=== PATIENT | male | born 1965 | race Caucasian/White ===

== ENCOUNTER 2021-09-08 09:14 | Emergency (ER) | payer MEDICARE, MEDICAID, SELFPAY ==
[2021-09-08 10:20] VITALS: BP 151/96; PULSE 110; RESP 18; TEMP 36.2; O2SAT 96; BMI 39.5
[2021-09-08 11:18] LABS: COVID-19 Test Positive (Negative)
[2021-09-08 11:27] LABS: Amphetamine Screen Urine Not Detected (Not Detect); Barbiturates, Urine Not Detected (Not Detect); Benzodiazepines Screen Urine Not Detected (Not Detect); Cannabinoid Screen Urine Not Detected (Not Detect); Cocaine Screen Urine Not Detected (Not Detect); Fentanyl, urine Not Detected (Not Detect); Opiate Screen Urine Not Detected (Not Detect); Phencyclidine Screen Urine Not Detected (Not Detect)
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
[2021-09-08] MEDS: Loperamide HCl 2 MG CAPSULE 4 MG PO (14:24)
[2021-09-08] MEDS: clonazePAM 1 MG TABLET PO ×2 (14:37→21:24)
[2021-09-08 14:51] LABS: MANUAL DIFF FLAG NO
[2021-09-08 14:54] LABS: Basophils Percent Auto 0.6 % (0-2); Eosinophils Percent Auto 0.4 % (0-4); Hematocrit 48.6 % (42.0-52.0); Hemoglobin 16.6 g/dl (14.0-18.0); Imm Gran Abs Auto 0.02 X10*3/uL (0.00-0.03); Imm Gran Pct Auto 0.4 % (0.0-0.4); Lymphocytes Absolute Auto 1.6 X10*3/uL (1.2-4.9); Lymphocytes Percent Auto 32.1 % (20-40); Mean Corpuscular HGB Conc 34.2 g/dl (31.0-36.0); Mean Corpuscular Hemoglobin 31.6 pg (27.0-33.0); Mean Corpuscular Volume 92.6 fL (80.0-98.0); Monocytes Absolute Auto 0.5 X10*3/uL (0.1-1.2); Monocytes Percent Auto 8.9 % (2-11); Neutrophils Absolute Auto 2.9 x10*3/uL (2.0-8.3); Neutrophils Percent Auto 57.6 % (45-73); Platelet Count 346 X10*3/uL (160-400); Red Blood Count 5.25 X10*6/uL (4.60-5.80); Red Cell Distribution Width 12.7 % (11.0-16.0); White Blood Count 5.1 X10*3/uL (4.8-10.8)
[2021-09-08 15:09] LABS: Alanine Aminotransferase 41 U/L (0-40); Albumin Level 4.4 g/dL (3.5-5.0); Alkaline Phosphatase 98 U/L (39-117); Anion Gap 14 (12-20); Aspartate Amino Transferase 40 U/L (5-37); Bilirubin Total 1.2 mg/dL (0.0-1.0); Blood Urea Nitrogen 12 mg/dL (9-16); Calcium 9.5 mg/dL (8.4-10.2); Carbon Dioxide 25 mmol/L (22-29); Chloride 103 mmol/L (96-108); Creatinine Clr Calc Pharmacy 112.8; Estimated Glomerular Filt Rate > 60; Ethanol < 10 mg/dL; Glucose Random 149 mg/dL (60-115); Magnesium 1.8 mg/dL (1.6-2.6); Sodium 138 mmol/L (135-145); Total Protein 7.4 g/dL (6.5-8.0)
--- NOTE | 2021-09-08 15:31 | PHA.MEDREC ---
Pharmacy Consult ? Medication Reconciliation Pharmacy has completed the medication reconciliation. Patient has not filled with [facility] since 2020, Claim history shows recent fills but they have not been picked up therefore have not been confirmed to have been taken recently. PDMP also shows no recent fills since 2020. PA was notified that patient has not picked up since then.
[2021-09-08 16:53] VITALS: BP 137/97; PULSE 104; TEMP 36.6; O2SAT 99
[2021-09-08] MEDS: Omeprazole 40 MG CAPSULE.DR PO (17:25)
[2021-09-08] MEDS: Methylphenidate HCl 10 MG TABLET 20 MG PO (17:26)
[2021-09-08] MEDS: LORazepam 1 MG TABLET 2 MG PO (18:47)
[2021-09-08] MEDS: NaPROXEN 500 MG TABLET PO (21:24)
[2021-09-08] MEDS: traMADoL HCL 50 MG TABLET PO (21:24)
[2021-09-08] MEDS: Amitriptyline HCl 10 MG TABLET PO (21:25)
[2021-09-08] MEDS: Atorvastatin Calcium 40 MG TABLET PO (21:25)
[2021-09-09] MEDS: Omeprazole 40 MG CAPSULE.DR PO ×2 (05:50→16:24)
--- NOTE | 2021-09-09 06:11 | PC.NURSE ---
Patient slept through the night, no distress observed/reported, medication compliant, administered Tramadol 50 mg and Klonopin 1 mg administered with HS medication at 2124, asymptomatic of withdrawal, behavior appropriate, follow covid quarantine protocol well, dispsotion per N is section 12 inpatient bed search, will continue to monitor.
[2021-09-09 06:24] VITALS: BP 131/86; PULSE 87; RESP 17; TEMP 36.9; O2SAT 99
[2021-09-09 08:08] VITALS: RESP 16
[2021-09-09] MEDS: Methylphenidate HCl 10 MG TABLET 20 MG PO ×3 (08:59→16:24)
[2021-09-09] MEDS: clonazePAM 1 MG TABLET PO ×2 (09:01→16:17)
[2021-09-09] MEDS: traMADoL HCL 50 MG TABLET PO ×2 (13:20→21:36)
--- NOTE | 2021-09-09 15:18 | PC.NURSE ---
Pt provided with sensory tools, word finds, and coloring pages, pt reports reading and journaling cause him anxiety. Pt presents pleasant and anxious however is receptive to activities provided. Pt is currently COVID +.
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
[2021-09-09 19:43] VITALS: BP 123/84; PULSE 118; RESP 17; TEMP 36.8; O2SAT 98
[2021-09-09 20:24] LABS: COVID-19 Test Positive (Negative)
[2021-09-09] MEDS: OXcarbazepine 150 MG TABLET PO (21:25)
[2021-09-09] MEDS: Amitriptyline HCl 10 MG TABLET PO (21:25)
[2021-09-10] MEDS: clonazePAM 1 MG TABLET PO ×4 (00:19→20:53)
--- NOTE | 2021-09-10 06:03 | PC.NURSE ---
Patient slept through the night, no distress observed/reported, disposition per [facility] is section 12 inpatient bed search, medication compliant, daughter dropped off patient's eye drop/medication is old/no visible expiration date/medication was labeled and placed in the patient's locker, patient exhibits medication seeking behavior with PRN Tramadol and Klonopin order, patient uphold quarantine protocol well, will continue to monitor.
[2021-09-10] MEDS: Omeprazole 40 MG CAPSULE.DR PO (06:37)
[2021-09-10 06:43] VITALS: BP 110/87; PULSE 111; RESP 18; TEMP 36.3; O2SAT 95
[2021-09-10] MEDS: OXcarbazepine 150 MG TABLET PO ×2 (09:23→20:53)
[2021-09-10] MEDS: Methylphenidate HCl 10 MG TABLET 20 MG PO ×3 (09:24→17:47)
--- NOTE | 2021-09-10 10:26 | PC.NURSE ---
Addendum entered by Naomi Michelle 09/10/21 10:29: After lengthy conversations it has been determined that patient will take PRN Klonipin and Ultram at 6am, 1400, 2200. This most closely matches his use at home. In order for pt to take meds at proper time for sleep he prefers we wake him at 6am for first dose of the day. Pt is calm, aware of plan for psych admission. Denies SI/HI at this time. no tremor/ETOH withdrawal sx. Original Note: Pt has been resting in room mainly. Denies SOB, Cough, Chills. States he may have had covid sx a few days ago but is asymptomatic now. Pt feels strongly that PRN meds should be taken at
[2021-09-10] MEDS: traMADoL HCL 50 MG TABLET PO ×2 (14:11→22:17)
--- NOTE | 2021-09-10 15:25 | PC.NURSE ---
Brief check in with pt completed this date. Pt reports having a restless night however is feeling better. Consult with pts nurse as pt expresses an interest in music. POD headphone to be offered later this day as pt is watching a movie at the moment.
--- NOTE | 2021-09-10 16:07 | PC.NURSE ---
BHN with patient
[2021-09-10] MEDS: Amitriptyline HCl 10 MG TABLET PO (20:53)
[2021-09-10 21:03] LABS: COVID-19 Test Positive (Negative)
[2021-09-10 21:45] VITALS: BP 125/77; PULSE 99; RESP 20; TEMP 36.4; O2SAT 95
[2021-09-11 05:17] VITALS: BP 131/88; PULSE 107; RESP 18; TEMP 36.7; O2SAT 96
[2021-09-11] MEDS: Omeprazole 40 MG CAPSULE.DR PO ×2 (05:30→13:58)
--- NOTE | 2021-09-11 06:24 | PC.NURSE ---
Patient slept through the night, no distress observed/reported, medication compliant, Covid test redone result +, disposition per [facility] is section 12 inpatient bed search, Klonopin order changed from PRN to schedule, behavior non concerning, will continue to monitor.
--- NOTE | 2021-09-11 07:08 | PC.NURSE ---
patient appears to remain asleep at present respirations are even and unlabored. patient appears in no distress
[2021-09-11] MEDS: OXcarbazepine 150 MG TABLET PO ×2 (08:16→21:55)
[2021-09-11] MEDS: clonazePAM 1 MG TABLET PO ×3 (08:16→21:55)
[2021-09-11] MEDS: Methylphenidate HCl 10 MG TABLET 20 MG PO ×3 (08:17→17:32)
[2021-09-11] MEDS: traMADoL HCL 50 MG TABLET PO ×2 (08:31→15:18)
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
[2021-09-11 12:22] VITALS: RESP 16
[2021-09-11 14:00] VITALS: RESP 20
--- NOTE | 2021-09-11 14:00 | PC.NURSE ---
Pt continues to scream I'm dying and it's your fucking fault . airway remains patent. Skin p/w/d. RR tachy and unlabored. Screaming full sentences.
--- NOTE | 2021-09-11 15:09 | PC.NURSE ---
Report received from Miranda MCCANN. Pt awake, oriented, no complaints at this time, continues to be isolated to room due to Covid status. Calm and cooperative.
--- NOTE | 2021-09-11 16:44 | PC.NURSE ---
Per Tracy from CARE team, plan is for N to work with pt to form a plan for d/c, the hope is to obtain an urgent care appointment or get pt set up with PHP.
[2021-09-11 21:30] VITALS: BP 129/91; PULSE 91; RESP 20; TEMP 36.5; O2SAT 98
[2021-09-11] MEDS: Amitriptyline HCl 10 MG TABLET PO (21:55)
[2021-09-12 05:35] VITALS: BP 132/76; PULSE 74; RESP 14; TEMP 36.6; O2SAT 98
--- NOTE | 2021-09-12 06:28 | PC.NURSE ---
Patient slept through the night, no distress observed/reported, medication compliant, behavior non concerning, Covid +, disposition changed to [facility] per N, will continue to monitor.
[2021-09-12] MEDS: Omeprazole 40 MG CAPSULE.DR PO (06:36)
[2021-09-12] MEDS: traMADoL HCL 50 MG TABLET PO (07:32)
[2021-09-12] MEDS: OXcarbazepine 150 MG TABLET PO (07:42)
[2021-09-12] MEDS: clonazePAM 1 MG TABLET PO ×2 (07:45→11:47)
[2021-09-12] MEDS: Methylphenidate HCl 10 MG TABLET 20 MG PO (07:46)
[2021-09-12 08:46] VITALS: BP 137/85; PULSE 116; RESP 18; TEMP 37.1; O2SAT 97
--- NOTE | 2021-09-12 15:37 | PC.NURSE ---
spoke to pt regarding med rec from [facility], Simran JAVIER did write for the Ritalin and sent over electronically. I also was told from pharm that his amitripyline is too early to fill and can be done on October 17.
== END 2021-09-12 11:58 | disposition home or self-care (01) ==
PROVIDERS: Physician Assistant; Physician Assistant Medical; Registered Nurse; Emergency Provider Emergency Medicine
DX: F43.10 Post-traumatic stress disorder, unspecified (principal); U07.1 COVID-19; F41.0 Panic disorder [episodic paroxysmal anxiety]; F41.1 Generalized anxiety disorder; F33.1 Major depressive disorder, recurrent, moderate; R00.0 Tachycardia, unspecified; Z20.822 Contact with and (suspected) exposure to COVID-19; Z79.899 Other long term (current) drug therapy
CPT/HCPCS: 36415; 80053; 80307; 82077; 83735; 85025; 87635; 99285

== ENCOUNTER 2024-04-28 17:03 | Inpatient (IN) | payer OTHER, SELFPAY ==
--- NOTE | ~2024-04-28 | XR_ITS ---
CLINICAL HISTORY: pain, fall 3 view right shoulder Comparison: None Findings: Mild osteoarthritis of the right AC joint. Postprocedural changes from partial right glenohumeral arthroplasty. Lucencies of the proximal humerus appear projectional without definite hardware loosening. Soft tissue swelling with effusion present. Multiple small loose bodies noted. Sclerosis of the proximal humerus appears non aggressive. Atelectasis in the [id number]. IMPRESSION: 1. No hardware loosening of the right glenoid humeral partial arthroplasty. 2. Osteoarthritis of the right AC joint without dislocation. This document has been electronically signed by: Tai Chavez MD on 04/28/2024 19:51:45
[2024-04-28 17:17] VITALS: BP 130/84; BP 130/89; PULSE 108; PULSE 93; RESP 16; TEMP 36.6; O2SAT 98; O2SAT 99; BMI 27.1
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
[2024-04-28 17:57] LABS: MANUAL DIFF FLAG NO
[2024-04-28 18:01] LABS: Basophils Absolute Auto 0.1 X10*3/uL (0.0-0.2); Basophils Percent Auto 0.4 % (0-2); Eosinophils Percent Auto 0.1 % (0-4); Hematocrit 44.1 % (42.0-52.0); Hemoglobin 15.1 g/dl (14.0-18.0); Imm Gran Abs Auto 0.03 X10*3/uL (0.00-0.03); Imm Gran Pct Auto 0.3 % (0.0-0.4); Lymphocytes Absolute Auto 1.7 X10*3/uL (1.2-4.9); Lymphocytes Percent Auto 15.4 % (20-40); Mean Corpuscular HGB Conc 34.2 g/dl (31.0-36.0); Mean Corpuscular Hemoglobin 30.3 pg (27.0-33.0); Mean Corpuscular Volume 88.4 fL (80.0-98.0); Mean Platelet Volume 10.2 fL (9.4-12.4); Monocytes Absolute Auto 0.7 X10*3/uL (0.1-1.2); Monocytes Percent Auto 6.2 % (2-11); Neutrophils Absolute Auto 8.7 x10*3/uL (2.0-8.3); Neutrophils Percent Auto 77.6 % (45-73); Platelet Count 205 X10*3/uL (160-400); Red Blood Count 4.99 X10*6/uL (4.60-5.80); Red Cell Distribution Width 13.2 % (11.0-16.0); White Blood Count 11.1 X10*3/uL (4.8-10.8)
[2024-04-28 18:03] VITALS: RESP 18
--- NOTE | 2024-04-28 18:06 | PC.NURSE ---
Lorenzo is coming in today reporting that he no longer feels comfortable living at his retirement in [place]. He reports that he lives in a [place] however the individuals there trigger his PTSD. He reports that he walked from the [place] retirement in [place] to his daughters house in [place] because he does not want to live there anymore. Patient denies SI/HI/AH/VH Patient reports that he also had shoulder surgery back in 2023 and had complications that subsequently caused him to have to stay in the hospital for about 1 month after surgery. patient now has limited range of motion in his right shoulder as well as chronic pain. he reports that he slipped and fell on the ice today as well and landed on shoulder. DO aware
[2024-04-28 18:13] LABS: Alanine Aminotransferase 37 U/L (0-40); Albumin Level 4.8 g/dL (3.5-5.0); Alkaline Phosphatase 91 U/L (39-117); Anion Gap 15 (12-20); Aspartate Amino Transferase 38 U/L (5-37); Bilirubin Direct 0.2 mg/dL (0.0-0.5); Bilirubin Total 0.7 mg/dL (0.0-1.0); Blood Urea Nitrogen 12 mg/dL (9-16); Calcium 10.2 mg/dL (8.4-10.2); Carbon Dioxide 27 mmol/L (22-29); Chloride 103 mmol/L (96-108); Creatinine Clr Calc Pharmacy 74.2; Estimated Glomerular Filt Rate > 60; Ethanol < 10 mg/dL; Glucose Random 110 mg/dL (60-115); Magnesium 1.7 mg/dL (1.6-2.6); Potassium 3.7 mmol/L (3.3-5.1); Sodium 141 mmol/L (135-145); Total Protein 8.2 g/dL (6.5-8.0)
[2024-04-28] MEDS: LORazepam 1 MG TABLET 2 MG PO (22:07)
--- NOTE | 2024-04-28 22:33 | PC.NURSE ---
pt c/o difficulty voiding states hasn't voided since this am. MD notified and gave verbal order to bladder scan. Pt scanned for over 650. MD notified stated to insert harvey catheter this nurse attempted x 1 without success. No urine output when attempted. md notified.
[2024-04-29] VITALS (9 sets, daily range): BP systolic 88–132; BP diastolic 52–87; PULSE 75–114; RESP 16–20; TEMP 36.4–36.6; O2SAT 95–99
--- NOTE | 2024-04-29 00:03 | PC.NURSE ---
Patient reported he is allergic on high dose of Seroquel ( > 600 mg). provider notified
[2024-04-29] MEDS: QUEtiapine Fumarate 25 MG TABLET PO ×2 (00:04→08:28)
[2024-04-29] MEDS: Methylphenidate HCl 10 MG TABLET 20 MG PO ×4 (00:04→20:50)
[2024-04-29] MEDS: Baclofen 10 MG TABLET PO ×2 (00:04→08:26)
[2024-04-29] MEDS: OLANZapine 5 MG TABLET PO (00:04)
[2024-04-29 00:15] LABS: Appearance Urine Clear; Color Urine Yellow; Glucose Urine UA Negative (Negative); Leukocyte Esterase Urine Negative (Negative); Nitrite Urine Negative (Negative); PH 5.5 (5.0-9.0); Specific Gravity - Urine 1.015 (1.005-1.025); Urine Blood Negative (Negative); Urine Ketones 15 mg/dL (Negative); Urine Protein Negative (Neg-Trace)
[2024-04-29 00:18] LABS: Amphetamine Screen Urine Not Detected (Not Detect); Barbiturates, Urine Not Detected (Not Detect); Benzodiazepines Screen Urine POSITIVE (Not Detect); Buprenorphine Scr Not Detected (Not Detect); Cannabinoid Screen Urine POSITIVE (Not Detect); Cocaine Screen Urine Not Detected (Not Detect); Fentanyl, urine Not Detected (Not Detect); Methadone Screen, Urine Not Detected (Not Detect); Opiate Screen Urine Not Detected (Not Detect); Oxycodone Screen Urine Not Detected (Not Detect); Phencyclidine Screen Urine Not Detected (Not Detect)
[2024-04-29] MEDS: diazePAM 5 MG TABLET 10 MG PO ×4 (00:28→23:46)
--- NOTE | 2024-04-29 07:14 | PC.NURSE ---
Assumed care of patient at 0645, patient appears to be in no apparent distress this am, sitting eating breakfast in bed. Overnight patient did receive a harvey catheter due to being unable to urinate. Continue plan of care for inpatient bedsearch
--- NOTE | 2024-04-29 08:55 | PHA.MEDREC ---
Pharmacy Consult ? Medication Reconciliation Pharmacy has REVIEWED the medication reconciliation done by RN.
[2024-04-29] MEDS: Ibuprofen 800 MG TABLET PO (10:04)
[2024-04-29] MEDS: Lidocaine 4 % Patch ADH..PATCH 1 PATCH TRANSDERMA (14:07)
--- NOTE | 2024-04-29 15:20 | PC.NURSE ---
Addendum entered by Nicki Toure 04/29/24 15:23: Dr. maier made aware via tiger text at 1520. Holding all afternoon medications at this time Original Note: TERRY Roland took patient's afternoon vitals. First set 88/58 with a repeat of 89/63 on the left arm. HR 80. Pt reports that he feels fine, denies dizziness. Output in catheter bag WNL
[2024-04-29] MEDS: Melatonin 3 MG TABLET 6 MG PO (20:50)
[2024-04-29] MEDS: QUEtiapine Fumarate 300 MG TABLET PO ×2 (20:50)
--- NOTE | 2024-04-30 06:53 | PC.NURSE ---
Pt approached nurses station to request his morning medication as he reports taking them normally early in the morning. when informed medications were scheduled for 0900 he was visibly and expressively upset. looking to speak with someone about this
--- NOTE | 2024-04-30 07:50 | ECG_ITS ---
Test Reason : qtc check Blood Pressure : */* mmHG Vent. Rate : 91 BPM Atrial Rate : 91 BPM P-R Int : 120 ms QRS Dur : 136 ms QT Int : 428 ms P-R-T Axes : 114 -2 48 degrees QTcB Int : 526 ms Artifact in tracing Normal sinus rhythm Right bundle branch block Abnormal ECG When compared with ECG of 24-Apr-2014 12:39, Nonspecific T wave abnormality now evident in Lateral leads Referred By: Randi Fofana Electronically Signed By: PREM COLON
[2024-04-30 07:59] VITALS: BP 108/72; PULSE 108; RESP 18; TEMP 36.3; O2SAT 97
[2024-04-30] MEDS: QUEtiapine Fumarate 25 MG TABLET PO ×3 (08:23→21:39)
[2024-04-30] MEDS: diazePAM 5 MG TABLET 10 MG PO ×3 (08:23→21:39)
[2024-04-30] MEDS: Methylphenidate HCl 10 MG TABLET 20 MG PO ×3 (08:24→21:39)
--- NOTE | 2024-04-30 08:46 | PC.NURSE ---
pt reports a couple of med changes that were not on the mar, states he is no longer taking baclofen or zyprexa and takes guanfacine. I spoke with Axel from pharmacy and these changes were made and dr lea informed of need to continue guanfacine
--- NOTE | 2024-04-30 09:43 | PC.NURSE ---
Joe dowell called and is the pt's procedures tech at [facility] and would like a call if and when pt is discharged [phone]. pt gave permission to speak with Joe
[2024-04-30] MEDS: guanFACINE HCl ER 2 MG TAB.ER.24H PO (10:29)
[2024-04-30] MEDS: Tamsulosin HCL 0.4 MG CAPSULE PO ×2 (13:06→21:40)
--- NOTE | 2024-04-30 14:21 | PC.NURSE ---
harvey removed per Dr Cornelius's instructions, pt was able to urinate a small amt per pt. pt unhappy about pending admission and requesting to speak with CARE team again. CARE team in with pt now
[2024-04-30 16:57] VITALS: BP 133/86; PULSE 104; RESP 18; TEMP 36.8; O2SAT 98
[2024-04-30 17:07] VITALS: BMI 26.6
[2024-04-30] MEDS: Acetaminophen 325 MG TABLET 650 MG PO (18:02)
[2024-04-30] MEDS: Baclofen 10 MG TABLET PO (18:02)
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
[2024-04-30] MEDS: Nicotine 21 MG PATCH.TD24 TRANSDERMA (18:56)
[2024-04-30 20:00] VITALS: BP 123/69; PULSE 91; TEMP 36.4; O2SAT 100
[2024-04-30] MEDS: QUEtiapine Fumarate 300 MG TABLET PO (21:39)
[2024-04-30] MEDS: Melatonin 3 MG TABLET 6 MG PO (21:40)
[2024-05-01 08:00] VITALS: BP 111/59; PULSE 78; RESP 18; TEMP 36.4; O2SAT 98
[2024-05-01 08:40] LABS: Estimated Average Glucose 111 mg/dL; Hemoglobin A1C 138.1973 umol/L; Hemoglobin A1c % 5.5 % (<6.0); Total Hemoglobin (HGBA1C) 3766.9025 umol/L
[2024-05-01 08:50] LABS: Cholesterol 183 mg/dL (<200); HDL Cholesterol 49 mg/dL (>40); LDL Cholesterol Calculated 106 mg/dL (<100); Triglycerides 144 mg/dL (<150)
[2024-05-01] MEDS: Methylphenidate HCl 10 MG TABLET 20 MG PO ×3 (09:03→21:31)
[2024-05-01] MEDS: diazePAM 5 MG TABLET 10 MG PO ×3 (09:04→21:31)
[2024-05-01] MEDS: QUEtiapine Fumarate 25 MG TABLET PO ×3 (09:04→21:30)
[2024-05-01] MEDS: Nicotine 21 MG PATCH.TD24 TRANSDERMA (09:08)
[2024-05-01] MEDS: guanFACINE HCl ER 1 MG TAB.ER.24H 2 MG PO (09:23)
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
[2024-05-01 20:00] VITALS: BP 111/78; PULSE 99; TEMP 36.9; O2SAT 98
[2024-05-01] MEDS: Melatonin 3 MG TABLET 6 MG PO (21:30)
[2024-05-01] MEDS: QUEtiapine Fumarate 300 MG TABLET PO (21:30)
[2024-05-01] MEDS: Ibuprofen 600 MG TABLET PO (21:30)
[2024-05-01] MEDS: Tamsulosin HCL 0.4 MG CAPSULE PO (21:30)
[2024-05-02 08:00] VITALS: BP 117/72; PULSE 77; RESP 18; TEMP 36.3; O2SAT 94
[2024-05-02] MEDS: diazePAM 5 MG TABLET 10 MG PO ×3 (08:07→22:45)
[2024-05-02] MEDS: guanFACINE HCl ER 1 MG TAB.ER.24H 2 MG PO (08:07)
[2024-05-02] MEDS: QUEtiapine Fumarate 25 MG TABLET PO ×3 (08:08→22:44)
[2024-05-02] MEDS: Methylphenidate HCl 10 MG TABLET 20 MG PO ×3 (08:08→22:44)
[2024-05-02] MEDS: Nicotine 21 MG PATCH.TD24 TRANSDERMA (08:09)
--- NOTE | 2024-05-02 09:53 | HO.PSYCHPN ---
Subjective Subjective Date of Service: 05/02/24 Reason For Visit: depression Interim History: met with pt; discussed with team pt remains at baseline; denies AVH and says mood is good. asking about discharge pt in good behavioral/impulse control, appropriate with peers, staff; asking about discharge and planning to go and stay w/ family Mental Status Exam Mental Status Exam Narrative: Pt is alert and oriented; behavior is cooperative, friendly and calm; patient is not in distress; dressed in casual attire with unkempt hair but adequate hygiene; mood is described as good and affect congruent; eye contact appropriate; Speech is normal rate, volume and prosody and not pressured; no psychomotor agitation/retardation present; thought process is organized and goal directed; Thought content is on getting back to his mother's; paranoid delusions but only expressed if solicited; denies any SI/HI. Patient denies any AH and does not seem internally preoccupied. Patients insight and judgment impaired but at baseline Diagnostics Vital Signs (24Hr): Vital Signs - 24 hr 05/01/24 20:00 05/02/24 08:00 Temperature 98.4 F 97.3 F Pulse Rate 99 77 Respiratory Rate 18 Blood Pressure 111/78 117/72 Pulse Oximetry 98 94 Oxygen Delivery Method Room Air Room Air BMI result Body Mass Index 26.6 Labs 04/28/24 17:52 04/28/24 17:52 Labs: Laboratory Results - last 48 hr 05/01/24 08:13 Estimat Average Glucose 111 Hemoglobin A1c % 5.5 Triglycerides 144 Cholesterol 183 LDL Cholesterol, Calc 106 H HDL Cholesterol 49 Medications Medications Current Medications Acetaminophen (Acetaminophen 325 Mg Tablet) 650 mg PO Q6H PRN PRN Reason: Headache/Pain, Scale 1-10 Last Admin: 04/30/24 18:02 Dose: 650 mg Al Hydroxide/Mg Hydroxide (Magnesium Hydrox/Alum Hydrox 30 Ml Oral.Susp) 30 ml PO Q6H PRN PRN Reason: Heartburn/Nausea Diazepam (Diazepam 5 Mg Tablet) 10 mg PO TID [facility] Last Admin: 05/02/24 08:07 Dose: 10 mg Guanfacine HCl (Guanfacine Hcl Er 1 Mg Tab.Er.24h) 2 mg PO DAILY [facility] Last Admin: 05/02/24 08:07 Dose: 2 mg Hydroxyzine HCl (Hydroxyzine Hcl 25 Mg Tablet) 25 mg PO Q6H PRN PRN Reason: mild anxiety Ibuprofen (Ibuprofen 600 Mg Tablet) 600 mg PO Q8H PRN PRN Reason: shoulder pain Last Admin: 05/01/24 21:30 Dose: 600 mg Magnesium Hydroxide (Milk Of Magnesia 30 Ml Oral.Susp) 30 ml PO DAILY PRN PRN Reason: Constipation Melatonin (Melatonin 3 Mg Tablet) 6 mg PO BEDTIME PRN PRN Reason: Insomnia Last Admin: 05/01/24 21:30 Dose: 6 mg Methylphenidate HCl (Methylphenidate Hcl 10 Mg Tablet) 20 mg PO TID [facility] Last Admin: 05/02/24 08:08 Dose: 20 mg Nicotine (Nicotine 21 Mg Patch.Td24) 21 mg TRANSDERMA DAILY PRN PRN Reason: smoking cessation Last Admin: 05/02/24 08:09 Dose: 21 mg Nicotine Polacrilex (Nicotine Polacrilex 2 Mg Gum) 4 mg BUCCAL Q2H PRN PRN Reason: Nicotine Cravings Nicotine Polacrilex (Nicotine Polacrilex Lozenge 4 Mg Lozenge) 4 mg BUCCAL Q2H PRN PRN Reason: Nicotine Cravings Olanzapine (Olanzapine 5 Mg Tablet) 5 mg PO TID PRN PRN Reason: agitation Quetiapine Fumarate (Quetiapine Fumarate 25 Mg Tablet) 25 mg PO TID [facility] Last Admin: 05/02/24 08:08 Dose: 25 mg Quetiapine Fumarate (Quetiapine Fumarate 300 Mg Tablet) 300 mg PO BEDTIME [facility] Last Admin: 05/01/24 21:30 Dose: 300 mg Tamsulosin HCl (Tamsulosin Hcl 0.4 Mg Capsule) 0.4 mg PO BEDTIME [facility] Last Admin: 05/01/24 21:30 Dose: 0.4 mg Allergies Allergies Allergy/AdvReac Type Severity Reaction Status Date / Time latex [Latex] Allergy Unknown UNKNOWN Verified 04/28/24 17:23 quetiapine [From Seroquel] Allergy Swelling Verified 04/28/24 23:46 trazodone Allergy Swelling Verified 04/28/24 17:23 From Vicodin AdvReac Unknown STOMACH Uncoded 11/22/19 15:12 UPSET Assessment & Plan Assessment & Plan (1) Post traumatic stress disorder (PTSD): Status: Acute Code(s): F43.10 - Post-traumatic stress disorder, unspecified (2) TBI (traumatic brain injury): Status: Acute Code(s): S06.9X9A - Unspecified intracranial injury with loss of consciousness of unspecified duration, initial encounter (3) ADHD: Status: Acute Code(s): F90.9 - Attention-deficit hyperactivity disorder, unspecified type Plan 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 Patient reports that he has been living at [facility] for about 5 months and during this time he has been hearing constant banging from the other side of the [place], and down below. He believes that other residents are making these noises to mess with him; when staff came in to try and here at, he said of course the banging stopped but when they left it resumed. He also sometimes hears laughing. Patient has even called the police to assess it however no analysis with the banging. Patient says he does not hear it anywhere else on campus, not hospital, only in his apartment at [facility]. Patient also reports he believes his phone is being hacked in to. He has destroyed his phone 3 times med pulled out a router. He says he can tell because he will press the 1 and the Hacker will change it to the letter S . Patient says he has talked with the [employer] who has allowed him to get new phones because of this. Patient reports that 8 months ago he was psychiatrically hospitalized after he thought his landlord laptop was being hacked into and he then broke it; she reported him and he was psychiatrically hospitalized. Patient denies that any of this is due to misinterpretation or his mind playing tricks on him. Patient is now [facility] because he said all this banging is triggering his PTSD. He remains on Seroquel 200 mg at bedtime and does not want any other medication management. Denies any recent alcohol or drug use. Formulation/clinical reasoning Patient reports what sounds to be paranoid delusions and auditory hallucinations. It is curious however that the AH only happens at this apartment and no were else. Patient reports that he was at a [facility], that [facility] [place] about 6 [facility] ago and something happened there were they sent him to the [facility] (psychiatrically admitted). Patient without insight. Does not want any medication changes. Denies depression or excess anxiety; denies any SI or HI and maintains that he has no AH, including the banging noise which he sees as evidence that it is not his mind playing tricks on him. Asking for discharge Hospital course: 05/02 patient remains the same, calm, friendly, in good behavioral and impulse control. Denies any AVH, depression anxiety; denies SI or HI. Says he would like to discharge and asks for help getting back home. Remains in good behavioral and impulse control, appropriate with peers and staff Plan: Three day notice Q 15 minute checks Continue Seroque 300 mg q.h.s.. Continue methylphenidate 20 mg t.i.d. Continue diazepam 10 mg t.i.d. Patient gives permission to call for collateral, his daughter and worker at [employer] on Patient educated on: diagnosis and medication risk/benefits Informed Consent: understands, does not understand and further education needed Reason for continued inpatient stay Substantial Risk for: stable for discharge and med/psych decompensation Time Spent With Patient Time: Total time managing care of this patient today ____ minutes.
[2024-05-02] MEDS: Ibuprofen 600 MG TABLET PO ×2 (10:37→22:45)
[2024-05-02] MEDS: Acetaminophen 325 MG TABLET 650 MG PO (14:35)
[2024-05-02 20:00] VITALS: BP 148/83; PULSE 58; TEMP 36.4; O2SAT 100
[2024-05-02] MEDS: QUEtiapine Fumarate 300 MG TABLET PO (22:44)
[2024-05-02] MEDS: Tamsulosin HCL 0.4 MG CAPSULE PO (22:45)
[2024-05-03 08:00] VITALS: BP 134/61; PULSE 76; RESP 94; TEMP 36.4; O2SAT 96
[2024-05-03] MEDS: Methylphenidate HCl 10 MG TABLET 20 MG PO ×3 (10:09→21:42)
[2024-05-03] MEDS: Ibuprofen 600 MG TABLET PO ×2 (10:10→21:51)
[2024-05-03] MEDS: diazePAM 5 MG TABLET 10 MG PO ×3 (10:10→21:42)
[2024-05-03] MEDS: Acetaminophen 325 MG TABLET 650 MG PO ×3 (10:11→21:50)
[2024-05-03] MEDS: Nicotine 21 MG PATCH.TD24 TRANSDERMA (10:14)
[2024-05-03] MEDS: QUEtiapine Fumarate 25 MG TABLET PO ×3 (10:16→21:42)
[2024-05-03] MEDS: guanFACINE HCl ER 1 MG TAB.ER.24H 2 MG PO (10:16)
[2024-05-03] MEDS: OLANZapine 5 MG TABLET PO (15:24)
[2024-05-03] MEDS: hydrOXYzine HCL 25 MG TABLET PO (15:24)
--- NOTE | 2024-05-03 18:15 | P.PNPSI_ITS ---
Subjective Subjective Date of Service: 05/03/24 Reason For Visit: depression Interim History: Met with patient; discussed with team Patient remains in good behavior and impulse control; appropriate with peers and staff. Denies AVH and other psychiatric symptoms . Says he feels good and would like to discharge. Discussed his daughter's concerns who provided collateral, talking about patient's paranoid ideations; patient remains on moved and politely disagrees, remained convinced that his phone is hacked and that the banging occurred. Mental Status Exam Mental Status Exam Narrative: Pt is alert and oriented; behavior is cooperative, friendly and calm; patient is not in distress; dressed in casual attire with adequate hygiene; mood is described as good and affect congruent; eye contact appropriate; Speech is normal rate, volume and prosody and not pressured; no psychomotor agitation/retardation present; thought process is organized and goal directed; Thought content is on getting back to his mother's; paranoid delusions but only expressed if solicited; denies any SI/HI. Patient denies any AH and does not seem internally preoccupied. Patients insight and judgment impaired but at baseline Diagnostics Vital Signs (24Hr): Vital Signs - 24 hr 05/02/24 20:00 05/03/24 08:00 Temperature 97.5 F 97.5 F Pulse Rate 58 76 Respiratory Rate 94 H Blood Pressure 148/83 H 134/61 Pulse Oximetry 100 96 Oxygen Delivery Method Room Air BMI result Body Mass Index 26.6 Labs 04/28/24 17:52 04/28/24 17:52 Medications Medications Current Medications Acetaminophen (Acetaminophen 325 Mg Tablet) 650 mg PO Q6H PRN PRN Reason: Headache/Pain, Scale 1-10 Last Admin: 05/03/24 15:25 Dose: 650 mg Al Hydroxide/Mg Hydroxide (Magnesium Hydrox/Alum Hydrox 30 Ml Oral.Susp) 30 ml PO Q6H PRN PRN Reason: Heartburn/Nausea Diazepam (Diazepam 5 Mg Tablet) 10 mg PO TID [facility] Last Admin: 05/03/24 14:26 Dose: 10 mg Guanfacine HCl (Guanfacine Hcl Er 1 Mg Tab.Er.24h) 2 mg PO DAILY [facility] Last Admin: 05/03/24 10:16 Dose: 2 mg Hydroxyzine HCl (Hydroxyzine Hcl 25 Mg Tablet) 25 mg PO Q6H PRN PRN Reason: mild anxiety Last Admin: 05/03/24 15:24 Dose: 25 mg Ibuprofen (Ibuprofen 600 Mg Tablet) 600 mg PO Q8H PRN PRN Reason: shoulder pain Last Admin: 05/03/24 10:10 Dose: 600 mg Magnesium Hydroxide (Milk Of Magnesia 30 Ml Oral.Susp) 30 ml PO DAILY PRN PRN Reason: Constipation Melatonin (Melatonin 3 Mg Tablet) 6 mg PO BEDTIME PRN PRN Reason: Insomnia Last Admin: 05/01/24 21:30 Dose: 6 mg Methylphenidate HCl (Methylphenidate Hcl 10 Mg Tablet) 20 mg PO TID [facility] Last Admin: 05/03/24 14:26 Dose: 20 mg Nicotine (Nicotine 21 Mg Patch.Td24) 21 mg TRANSDERMA DAILY PRN PRN Reason: smoking cessation Last Admin: 05/03/24 10:14 Dose: 21 mg Nicotine Polacrilex (Nicotine Polacrilex 2 Mg Gum) 4 mg BUCCAL Q2H PRN PRN Reason: Nicotine Cravings Olanzapine (Olanzapine 5 Mg Tablet) 5 mg PO TID PRN PRN Reason: agitation Last Admin: 05/03/24 15:24 Dose: 5 mg Quetiapine Fumarate (Quetiapine Fumarate 25 Mg Tablet) 25 mg PO TID [facility] Last Admin: 05/03/24 14:26 Dose: 25 mg Quetiapine Fumarate (Quetiapine Fumarate 300 Mg Tablet) 300 mg PO BEDTIME [facility] Last Admin: 05/02/24 22:44 Dose: 300 mg Tamsulosin HCl (Tamsulosin Hcl 0.4 Mg Capsule) 0.4 mg PO BEDTIME [facility] Last Admin: 05/02/24 22:45 Dose: 0.4 mg Allergies Allergies Allergy/AdvReac Type Severity Reaction Status Date / Time latex [Latex] Allergy Unknown UNKNOWN Verified 04/28/24 17:23 quetiapine [From Seroquel] Allergy Swelling Verified 04/28/24 23:46 trazodone Allergy Swelling Verified 04/28/24 17:23 From Vicodin AdvReac Unknown STOMACH Uncoded 11/22/19 15:12 UPSET Assessment & Plan Assessment & Plan (1) Psychotic disorder: Status: Acute Code(s): F29 - Unspecified psychosis not due to a substance or known physiological condition (2) Post traumatic stress disorder (PTSD): Status: Acute Code(s): F43.10 - Post-traumatic stress disorder, unspecified (3) TBI (traumatic brain injury): Status: Acute Code(s): S06.9X9A - Unspecified intracranial injury with loss of consciousness of unspecified duration, initial encounter (4) ADHD: Status: Acute Code(s): F90.9 - Attention-deficit hyperactivity disorder, unspecified type Plan 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 Patient reports that he has been living at [facility] for about 5 months and during this time he has been hearing constant banging from the other side of the [place], and down below. He believes that other residents are making these noises to mess with him; when staff came in to try and here at, he said of course the banging stopped but when they left it resumed. He also sometimes hears laughing. Patient has even called the police to assess it however no analysis with the banging. Patient says he does not hear it anywhere else on campus, not hospital, only in his apartment at [facility]. Patient also reports he believes his phone is being hacked in to. He has destroyed his phone 3 times med pulled out a router. He says he can tell because he will press the 1 and the Hacker will change it to the letter S . Patient says he has talked with the [employer] who has allowed him to get new phones because of this. Patient reports that 8 months ago he was psychiatrically hospitalized after he thought his landlord laptop was being hacked into and he then broke it; she reported him and he was psychiatrically hospitalized. Patient denies that any of this is due to misinterpretation or his mind playing tricks on him. Patient is now leaving his [place] apartment because he said all this banging is triggering his PTSD. He remains on Seroquel 200 mg at bedtime and does not want any other medication management. Denies any recent alcohol or drug use. Formulation/clinical reasoning Patient reports what sounds to be paranoid delusions and auditory hallucinations. It is curious however that the AH only happens at this apartment and no were else. Patient reports that he was at a [facility], that [place] about 6 months ago and something happened there were they sent him to the [email or web address].. (psychiatrically admitted). Patient without insight. Does not want any medication changes. Denies depression or excess anxiety; denies any SI or HI and maintains that he has no AH, including the banging noise which he sees as evidence that it is not his mind playing tricks on him. Asking for discharge Hospital course: 05/02 patient remains the same, calm, friendly, in good behavioral and impulse control. Denies any AVH, depression anxiety; denies SI or HI. Says he would like to discharge and asks for help getting back home. Remains in good behavioral and impulse control, appropriate with peers and staff 05/03 Patient remains in good behavior and impulse control; appropriate with peers and staff. Denies AVH and other psychiatric symptoms. Survey Chief discussed diagnosis and explained development writer's opinion that patient has having paranoid ideations however patient disagrees and is comfortable disagreeing. Says he feels good and would like to discharge. Discussed his daughter's concerns who provided collateral, talking about patient's paranoid ideations; patient remains on moved and politely disagrees, remained convinced that his phone is hacked and that the banging occurred. Patient is asking for discharge. Three day notice coming due. Although patient has paranoid ideations and intermittent AH, he is at baseline and it seems that he has operated this way in the community for years. His mood is good, he is organized in speech and behavior and in good behavioral and impulse control. While he will likely continue struggle with paranoid thinking, Patient is not in imminent risk for harm to self or others and his request for discharge honored. Plan: Three day notice Q 15 minute checks Continue Seroque 300 mg q.h.s.. Continue methylphenidate 20 mg t.i.d. Continue diazepam 10 mg t.i.d. Patient gives permission to call for collateral, his daughter and worker at [employer] on Patient educated on: diagnosis and medication risk/benefits Informed Consent: understands Reason for continued inpatient stay Substantial Risk for: stable for discharge Time Spent With Patient Time: Total time managing care of this patient today ____ minutes.
[2024-05-03 20:00] VITALS: BP 120/72; PULSE 92; RESP 16; TEMP 36.8; O2SAT 93
[2024-05-03] MEDS: Tamsulosin HCL 0.4 MG CAPSULE PO (21:41)
[2024-05-03] MEDS: Melatonin 3 MG TABLET 6 MG PO (21:42)
[2024-05-03] MEDS: QUEtiapine Fumarate 300 MG TABLET PO (21:42)
[2024-05-04 08:26] VITALS: BP 125/71; PULSE 78; TEMP 36.4; O2SAT 94
[2024-05-04] MEDS: diazePAM 5 MG TABLET 10 MG PO (09:19)
[2024-05-04] MEDS: guanFACINE HCl ER 1 MG TAB.ER.24H 2 MG PO (09:20)
[2024-05-04] MEDS: Nicotine 21 MG PATCH.TD24 TRANSDERMA (09:21)
--- NOTE | 2024-05-04 09:29 | PM.PSYDC ---
DS: Providers Provider Date of Service: 05/04/24 Date of admission: 04/30/24 15:47 Date of discharge: 05/04/24 Primary care physician: Unknown Physician Attending physician on admission: Tai Blanco Attending physician on discharge: Tai Blanco DS: Diagnosis Discharge Diagnosis (1) Psychotic disorder: Status: Acute (2) Post traumatic stress disorder (PTSD): Status: Acute (3) TBI (traumatic brain injury): Status: Acute (4) ADHD: Status: Acute DS: Medications Discharge Medications Home Medications: Home Medications ?Medication ?Instructions ?Recorded ?Confirmed diazepam 10 mg tablet 10 mg PO TID 04/28/24 04/28/24 melatonin 5 mg tablet 5 mg PO BEDTIME PRN Insomnia 04/28/24 04/28/24 methylphenidate HCl 20 mg tablet 20 mg PO TID 04/28/24 04/28/24 quetiapine 25 mg tablet 25 mg PO TID 04/28/24 04/28/24 quetiapine 300 mg tablet 300 mg PO BEDTIME 04/28/24 04/28/24 guanfacine 2 mg tablet 2 mg PO BID 04/30/24 04/30/24 Previous Rx's ?Medication ?Instructions ?Recorded tamsulosin 0.4 mg capsule 0.4 mg PO BEDTIME 30 days #30 caps 05/04/24 Mental Status Exam Mental Status Exam Narrative: Pt is alert and oriented; behavior is cooperative, friendly and calm; patient is not in distress; dressed in casual attire with adequate hygiene; mood is described as euthymic and affect congruent; eye contact appropriate; Speech is normal rate, volume and prosody and not pressured; no psychomotor agitation/retardation present; thought process is organized and goal directed; Thought content is on post discharge plans; paranoid delusions at baseline; no SI/HI. Denies AH and does not appear internally preoccupied. Patients insight and judgment impaired but at baseline and adequate. Data Data Completed and Pending Completed studies during hospitalization [Text1]: 04/28/24 04/28/24 05/01/24 17:52 23:56 08:13 WBC 11.1 H RBC 4.99 Hgb 15.1 Hct 44.1 MCV 88.4 MCH 30.3 MCHC 34.2 RDW 13.2 Plt Count 205 D MPV 10.2 Immature Gran % (Auto) 0.3 Neut % (Auto) 77.6 H Lymph % (Auto) 15.4 L [place] % (Auto) 6.2 Eos % (Auto) 0.1 Baso % (Auto) 0.4 Lymph # (Auto) 1.7 [place] # (Auto) 0.7 Eos # (Auto) 0.0 Baso # (Auto) 0.1 Abs Immat Gran (auto) 0.03 Absolute Neuts (auto) 8.7 H Absolute Nucleated RBC 0.000 Nucleated RBC % (auto) 0.0 Sodium 141 Potassium 3.7 Chloride 103 Carbon Dioxide 27 Anion Gap 15 BUN 12 Creatinine 1.19 Estim Creat Clear Calc 74.2 Estimated GFR > 60 Random Glucose 110 Estimat Average Glucose 111 Hemoglobin A1c % 5.5 Calcium 10.2 D Magnesium 1.7 Total Bilirubin 0.7 Direct Bilirubin 0.2 AST 38 H ALT 37 Alkaline Phosphatase 91 Total Protein 8.2 H Albumin 4.8 Triglycerides 144 Cholesterol 183 LDL Cholesterol, Calc 106 H HDL Cholesterol 49 Urine Color Yellow Urine Appearance Clear Urine pH 5.5 Ur Specific [place] 1.015 Urine Protein Negative Urine Glucose (UA) Negative Urine Ketones 15 Urine Blood Negative Urine Nitrite Negative Ur Leukocyte Esterase Negative Urine Opiates Screen Not Detected Ur Buprenorphine Scrn Not Detected Ur Oxycodone Screen Not Detected Urine Methadone Screen Not Detected Urine Fentanyl Screen Not Detected Ur Barbiturates Screen Not Detected Ur Phencyclidine Scrn Not Detected Ur Amphetamines Screen Not Detected U Benzodiazepines Scrn POSITIVE H Urine Cocaine Screen Not Detected U Marijuana (THC) Screen POSITIVE H Ethyl Alcohol < 10 DS: Summary Hospital Course Hospital Course: HPI: 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 Patient reports that he has been living at [facility] for about 5 months and during this time he has been hearing constant banging from the other side of the [place], and down below. He believes that other residents are making these noises to mess with him; when staff came in to try and here at, he said of course the banging stopped but when they left it resumed. He also sometimes hears laughing. Patient has even called the police to assess it however no analysis with the banging. Patient says he does not hear it anywhere else on campus, not hospital, only in his apartment at [address] [place]. Patient also reports he believes his phone is being hacked in to. He has destroyed his phone 3 times med pulled out a router. He says he can tell because he will press the 1 and the Hacker will change it to the letter S . Patient says he has talked with the [employer] who has allowed him to get new phones because of this. Patient reports that 8 months ago he was psychiatrically hospitalized after he thought his landlord laptop was being hacked into and he then broke it; she reported him and he was psychiatrically hospitalized. Patient denies that any of this is due to misinterpretation or his mind playing tricks on him. Patient is now [place] because he said all this banging is triggering his PTSD. He remains on Seroquel 200 mg at bedtime and does not want any other medication management. Denies any recent alcohol or drug use. Formulation/clinical reasoning Patient reports what sounds to be paranoid delusions and auditory hallucinations. It is curious however that the AH only happens at his apartment and no where else; paranoid ideations however persist. Patient reports that he was at a PTSD treatment Center ([facility]) about 6-8 months ago during which time something happened and they sent him to the [facility] (psychiatrically admitted). Patient without insight. Does not want any medication changes. Denies depression or excess anxiety; denies any SI or HI and maintains that he has no AH, including the banging noise which he sees as evidence that it is not his mind playing tricks on him. Already has providers and is asking for discharge. Hospital course: Calm, polite, friendly on admission. Denies any AVH, SI/HI, depression. Feels medications are adequate; he's just looking for PTSD treatment and otherwise asking for discharge. No insight into paranoid ideations. Patient in good behavioral and impulse control. 05/02 patient remains the same, calm, friendly, in good behavioral and impulse control. Denies any AVH, depression, anxiety; denies SI or HI. Says he would like to discharge and asks for help getting back home. Remains in good behavioral and impulse control, appropriate with peers and staff 05/03 Patient remains in good behavior and impulse control; appropriate with peers and staff. Denies AVH and other psychiatric symptoms. Household Worker discussed diagnosis and explained journalists and other writers's opinion that patient has paranoid ideations however patient disagrees and is comfortable disagreeing. Says he feels good and would like to discharge. Discussed his daughter's concerns who provided collateral about patient's paranoid ideations; patient remains unmoved and politely disagrees; remains convinced that his phone is hacked and that the banging occurred but feels he's dealing with it appropriately. Patient is asking for discharge. Three day notice coming due. Although patient has paranoid ideations and intermittent AH, he is at baseline and it seems that he has operated this way in the community for some time. His mood is good, he is organized in speech and behavior and in good behavioral and impulse control. While he will likely continue struggle with paranoid thinking, Patient is not in imminent risk for harm to self or others and his request for discharge honored. Time spent discussing smoking cessation with patient: 3 to 10 minutes Status at Discharge Functional status at discharge: independent ambulation Overall status at discharge: patient is back to baseline Time Spent with Patient Time attestation: Total time managing care of this patient today ____ minutes. Time spent: Less than 30 minutes Discharge Plan Discharge Anticipated Discharge Date/Time: 05/04/24 11:30 Patient Disposition: Home, Self-Care Discharge Diagnosis: Psychotic disorder, unspecified Referrals: [facility] [Other] - 05/07/24 5:00 pm (Hospital Discharge Appointment Appointment is in person at [facility] ) [facility] (skilled nursing) [Other] - 1 Week (Jail resources ) [facility] (skilled nursing) [Other] - 1 Week ([facility] ) [facility] (skilled nursing) [Other] - 1 Week ([facility] ) [facility] (emergency [facility] [Other] - 1 Week ([facility]ail Resources ) [facility] [Other] - 1 Week (Crisis services phone number) [facility] Crisis Services [Other] - 1 Week (Crisis services phone number) Physician,Unknown J [Primary Care Provider] - 1 Week Discharge Medications: New tamsulosin 0.4 mg Capsule 0.4 mg PO BEDTIME 30 Days Qty: 30 0RF Continued quetiapine 25 mg Tablet 25 mg PO TID quetiapine 300 mg Tablet 300 mg PO BEDTIME methylphenidate HCl 20 mg Tablet 20 mg PO TID diazepam 10 mg Tablet 10 mg PO TID melatonin 5 mg Tablet 5 mg PO BEDTIME PRN (Reason: Insomnia) Rx Instructions: may repeat x 1 guanfacine 2 mg tablet 2 mg PO BID Discharge Orders: Discharge Order (Routine); Ordered 05/04/24 Ordered By: Tai Blanco Diet: Regular diet Activity on Discharge: As tolerated Stand Alone Forms: Patient Portal Discharge page Print Language: Bengali Care Plan Goals: Maintain mood and safe behaviors Take medications as prescribed Continue to pursue sobriety Practice coping skills Continue with outpatient providers and reach out to them as needed Health Concerns: Mood stability and behaviors TBI Right shoulder injury, chronic (S/P surgical repair) Plan of Treatment: Follow up with your PCP, psychiatric provider and other outpatient providers regarding above concerns Take medications as prescribed Assessment: Risk assessment at time of discharge:? Patient was interviewed prior to discharge and found to be fully oriented and without any SI or HI. Patient has improved insight and judgment and wants to continue treatment. Patient is not in imminent risk of harm to self or others and has a safety plan that includes presenting to the closest ER or calling 911 if feeling unsafe.? Patient has been observed closely by nursing and unit staff throughout admission; patient has not engaged in any behaviors that suggest dangerousness to self or others and has demonstrated appropriate behaviors and impulse control
[2024-05-04] MEDS: Methylphenidate HCl 10 MG TABLET 20 MG PO (09:52)
[2024-05-04] MEDS: QUEtiapine Fumarate 25 MG TABLET PO (09:52)
== END 2024-05-04 13:20 | disposition home or self-care (01) | DRG 885 ==
LOC: HO.ED 18:43 → HO.PM5 04-30 16:20
PROVIDERS: Admitting Provider Psychiatry & Neurology Psychiatry; Emergency Provider Emergency Medicine; Visit Provider Psychiatry & Neurology Psychiatry
DX: F29 Unspecified psychosis not due to a substance or known physiological condition (principal); F90.9 Attention-deficit hyperactivity disorder, unspecified type; F43.10 Post-traumatic stress disorder, unspecified; Z87.820 Personal history of traumatic brain injury; Z87.891 Personal history of nicotine dependence; Z79.899 Other long term (current) drug therapy
CPT/HCPCS: 36415; 73030; 80048; 80061; 80076; 80307; 81003; 83036; 83735; 85025; 93005; 99285; S9485

== ENCOUNTER → 2024-04-28 17:27 | Outpatient (BNV) | payer OTHER, SELFPAY | PROVIDERS: Emergency Provider Emergency Medicine; Visit Provider Radiology Neuroradiology | DX: M25.511 Pain in right shoulder (principal) | CPT/HCPCS: 73030 ==

== ENCOUNTER → 2024-04-30 07:50 | Outpatient (BNV) | payer OTHER, SELFPAY | PROVIDERS: Emergency Provider Emergency Medicine; Visit Provider Internal Medicine | DX: I45.10 Unspecified right bundle-branch block (principal) | CPT/HCPCS: 93010 ==

== ENCOUNTER → 2024-04-30 15:47 | Outpatient (BNV) | payer OTHER, SELFPAY | PROVIDERS: Admitting Provider Psychiatry & Neurology Psychiatry; Emergency Provider Emergency Medicine; Visit Provider Psychiatry & Neurology Psychiatry | DX: F29 Unspecified psychosis not due to a substance or known physiological condition (principal); F43.11 Post-traumatic stress disorder, acute; S06.9X9A Unspecified intracranial injury with loss of consciousness of unspecified duration, initial encounter; F90.9 Attention-deficit hyperactivity disorder, unspecified type | CPT/HCPCS: 99222; 99232; 99238 ==

== ENCOUNTER 2024-05-23 05:57 | Emergency (ER) | payer OTHER, SELFPAY ==
[2024-05-23 05:59] VITALS: BP 146/88; PULSE 88
[2024-05-23 06:13] VITALS: BP 112/85; PULSE 109; RESP 20; TEMP 37.1; O2SAT 98; BMI 25.7
--- NOTE | 2024-05-23 07:14 | ED_ITS ---
HPI - Weakness General Chief complaint: Extremity Problem Stated complaint: hip and knee pain, hx arthritis, requested eval Time Seen by Provider: 05/23/24 06:53 Source: patient, EMS and old records reviewed Mode of arrival: EMS Limitations: no limitations History of Present Illness ED Provider: ELIZABETH HPI Narrative: 58 yo male with PMH of TBI, psychosis, ADHD who reports chronic leg pain and issues in need for bilateral TKR in the future who states it has been a long while when his legs hurt when he walks and they give out. He states he had a rough night where he lost his ADHD meds after the police took them. He then was given a ride to the [facility] then needed $1 dollar to stay and no one had it to help him so he ended up walking back to [place]. 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 He denies SI/HI, fevers, drug use, ETOH use. He is here resting and asking for his PO valium he is also upset someone prehospital took his ADHD medications. MD Complaint: generalized weakness Onset (ago): month(s) Duration: intermittent Location: generalized Migration: none Severity: moderate Quality: aching Relieving factors: rest Exacerbating factors: movement and exertion Context: other Associated symptoms: denies other symptoms Related Data Home Medications ?Medication ?Instructions ?Recorded ?Confirmed diazepam 10 mg tablet 10 mg PO TID 04/28/24 04/28/24 melatonin 5 mg tablet 5 mg PO BEDTIME PRN Insomnia 04/28/24 04/28/24 methylphenidate HCl 20 mg tablet 20 mg PO TID 04/28/24 04/28/24 quetiapine 25 mg tablet 25 mg PO TID 04/28/24 04/28/24 quetiapine 300 mg tablet 300 mg PO BEDTIME 04/28/24 04/28/24 guanfacine 2 mg tablet 2 mg PO BID 04/30/24 04/30/24 Previous Rx's ?Medication ?Instructions ?Recorded tamsulosin 0.4 mg capsule 0.4 mg PO BEDTIME 30 days #30 caps 05/04/24 Allergies Allergy/AdvReac Type Severity Reaction Status Date / Time latex [Latex] Allergy Unknown UNKNOWN Verified 05/23/24 06:16 quetiapine [From Seroquel] Allergy Swelling Verified 05/23/24 06:16 trazodone Allergy Swelling Verified 05/23/24 06:16 From Vicodin AdvReac Unknown STOMACH Uncoded 05/23/24 06:16 UPSET Review of Systems 2 Review of Systems: Constitutional : No Fever, No Chills ENT/Mouth : No Ear Pain, No Hoarseness, No sore throat Eyes: No Eye Pain, No Swelling, No Redness, No Foreign Body Cardiovascular : No Chest Pain, No SOB Respiratory : No Cough, No Dyspnea Gastrointestinal : No Nausea, No Vomiting, No Diarrhea, No abdominal Pain Genitourinary : No Dysuria, No Hematuria Musculoskeletal : positive joint pain, No Myalgias, pos Joint Swelling Skin : No Skin lacerations, No rash Neuro : No Weakness, No Numbness, No Loss of Consciousness, No Dizziness, No Headache All other systems reviewed and are negative [facility] Past Medical History Attestation statement: The following information was validated with the patient. Source: old records reviewed Medical History Psychotic disorder ADHD TBI (traumatic brain injury) Post traumatic stress disorder (PTSD) GISEL (generalized anxiety disorder) Panic disorder Social History Social History Household Members: Other Housing: Assisted Living Facility Do you presently have visiting nurse or other home services: Yes Alcohol intake: former Patient Tobacco Use Status: Former Tobacco user Tobacco use type: Cigarette Second Hand Smoke Exposure: No Substance Use Type: Marijuana Advance Directives: No Advance Directives Information Provided: Yes service: Yes ([employer]) Sexual orientation: Straight/Heterosexual Physical Exam 2 Vital Signs: Vital Signs: Last Vital Signs Temp 98.7 F 05/23/24 06:13 Pulse 109 H 05/23/24 06:13 Resp 20 05/23/24 06:13 BP 112/85 05/23/24 06:13 Pulse Ox 98 05/23/24 06:13 O2 Del Method Room Air 05/23/24 06:13 BMI result Body Mass Index 25.7 Appearance: Alert. Oriented X3. No acute distress. Anxious appearing slightly hyperverbal Eyes: Pupils equal, round and reactive to light. ENT: Pharynx normal. Neck: Normal inspection. Neck supple. CVS: Normal heart rate and rhythm. Pulses normal. Respiratory: No respiratory distress. Breath sounds normal. Abdomen: Soft and nontender. Skin: Skin warm and dry. Normal skin color. Normal skin turgor. Extremities: No lower extremity edema. No calf ttp compartments are soft and compressible 2+ DP and PT pulses, SILT intact, no swelling or rash Neuro: Oriented X 3. No motor deficit. No sensory deficit. CN2-12 intact Medications Administered Discontinued Medications Generic Name Dose Route Start Last Admin Trade Name Yudith PRN Reason Stop Dose Admin Diazepam 10 mg 05/23/24 07:11 05/23/24 07:31 Diazepam 5 Mg Tablet PO 05/23/24 07:12 10 mg ONCE ONE Administration Sodium Chloride 1,000 mls @ 999 mls/hr 05/23/24 08:57 05/23/24 09:18 Ns IV 05/23/24 09:57 999 mls/hr .Q1H1M ONE Administration Sodium Chloride 1,000 mls @ 999 mls/hr 05/23/24 08:57 05/23/24 09:27 Ns IV 05/23/24 09:57 999 mls/hr .Q1H1M ONE Administration Ketorolac Tromethamine 15 mg 05/23/24 09:22 05/23/24 09:27 Ketorolac Tromethamine 15 Mg/Ml Vial IVPUSH 05/23/24 09:23 15 mg ONCE ONE Administration Medical Decision Making Medical Decision Making [facility] Narrative: 58 yo male with PMH of TBI, psychosis, ADHD here with c/o having tired legs and feeling weak after walking a lot. He also notes issues with her ADHD meds and missed valium yesterday. At this time he is [place] intact no signs of infection will obtain labs and CPK level along with ordering his PO valium. If negative work up he is stable for DC. He tells me he has stable housing through the [facility] in [place] Differential Diagnosis Differential Diagnoses: The differential diagnosis associated with the presentation includes lyte abnormality, rhabdo, medication needs Admission/Observation Consideration of admission/observation: Escalation of care including admission/observation considered CPK improved after 2L of IVF, stable for DC Lab Data [facility] Lab Attestation statement: I reviewed the patient's lab results. 05/23/24 08:30 05/23/24 08:30 Labs: Lab Results 05/23/24 05/23/24 Range/Units 08:30 11:18 WBC 8.2 (4.8-10.8) X10*3/uL RBC 4.59 L (4.60-5.80) X10*6/uL Hgb 13.7 L (14.0-18.0) g/dl Hct 40.8 L (42.0-52.0) % MCV 88.9 (80.0-98.0) fL MCH 29.8 (27.0-33.0) pg MCHC 33.6 (31.0-36.0) g/dl RDW 13.7 (11.0-16.0) % Plt Count 298 D (160-400) X10*3/uL MPV 9.2 L (9.4-12.4) fL Immature Gran % (Auto) 0.5 H (0.0-0.4) % Neut % (Auto) 70.0 (45-73) % Lymph % (Auto) 18.1 L (20-40) % [place] % (Auto) 10.7 (2-11) % Eos % (Auto) 0.1 (0-4) % Baso % (Auto) 0.6 (0-2) % Lymph # (Auto) 1.5 (1.2-4.9) X10*3/uL [place] # (Auto) 0.9 (0.1-1.2) X10*3/uL Eos # (Auto) 0.0 (0.0-0.4) X10*3/uL Baso # (Auto) 0.1 (0.0-0.2) X10*3/uL Abs Immat Gran (auto) 0.04 H (0.00-0.03) X10*3/uL Absolute Neuts (auto) 5.7 (2.0-8.3) x10*3/uL Absolute Nucleated RBC 0.000 (0.0-0.012) X10*3/uL Nucleated RBC % (auto) 0.0 (0.0-0.2) /100WBC Sodium 141 (135-145) mmol/L Potassium 3.4 (3.3-5.1) mmol/L Chloride 106 (96-108) mmol/L Carbon Dioxide 26 (22-29) mmol/L Anion Gap 12 (12-20) BUN 24 H (9-16) mg/dL Creatinine 0.79 (0.5-1.4) mg/dL Estim Creat Clear Calc 108.5 Estimated GFR > 60 Random Glucose 76 (60-115) mg/dL Calcium 9.0 D (8.4-10.2) mg/dL Magnesium 1.9 (1.6-2.6) mg/dL Total Bilirubin 0.6 (0.0-1.0) mg/dL Direct Bilirubin 0.2 (0.0-0.5) mg/dL AST 54 H (5-37) U/L ALT 50 H (0-40) U/L Alkaline Phosphatase 101 (39-117) U/L Total Creatine Kinase 1219 H 1139 H (38-174) U/L Total Protein 6.9 (6.5-8.0) g/dL Albumin 4.0 (3.5-5.0) g/dL Ethyl Alcohol < 10 mg/dL Independent Historian Clinical information obtained from an independent historian. History obtained from or confirmed by: EMS External Record Review External record reviewed: Outpatient record Discharge Plan Discharge Clinical Impression: Rhabdomyolysis Qualifiers: Rhabdomyolysis type: non-traumatic Qualified Code(s): M62.82 - Rhabdomyolysis Patient Disposition: Home, Self-Care Instructions: Rhabdomyolysis (ED) Additional Instructions: stay hydrated, rest return for worsening symptoms pain, numbness, tingling or any other concerns drink 50 ounces of water a day to flush the kidneys make sure you have no issues urinating Prescriptions: No Action quetiapine 25 mg Tablet 25 mg PO TID quetiapine 300 mg Tablet 300 mg PO BEDTIME methylphenidate HCl 20 mg Tablet 20 mg PO TID diazepam 10 mg Tablet 10 mg PO TID melatonin 5 mg Tablet 5 mg PO BEDTIME PRN (Reason: Insomnia) Rx Instructions: may repeat x 1 guanfacine 2 mg tablet 2 mg PO BID tamsulosin 0.4 mg Capsule 0.4 mg PO BEDTIME 30 Days Qty: 30 0RF Print Language: Trinidadian
[2024-05-23] MEDS: diazePAM 5 MG TABLET 10 MG PO (07:31)
[2024-05-23 08:35] LABS: MANUAL DIFF FLAG NO
[2024-05-23 08:44] LABS: Basophils Absolute Auto 0.1 X10*3/uL (0.0-0.2); Basophils Percent Auto 0.6 % (0-2); Eosinophils Percent Auto 0.1 % (0-4); Hematocrit 40.8 % (42.0-52.0); Hemoglobin 13.7 g/dl (14.0-18.0); Imm Gran Abs Auto 0.04 X10*3/uL (0.00-0.03); Imm Gran Pct Auto 0.5 % (0.0-0.4); Lymphocytes Absolute Auto 1.5 X10*3/uL (1.2-4.9); Lymphocytes Percent Auto 18.1 % (20-40); Mean Corpuscular HGB Conc 33.6 g/dl (31.0-36.0); Mean Corpuscular Hemoglobin 29.8 pg (27.0-33.0); Mean Corpuscular Volume 88.9 fL (80.0-98.0); Mean Platelet Volume 9.2 fL (9.4-12.4); Monocytes Absolute Auto 0.9 X10*3/uL (0.1-1.2); Monocytes Percent Auto 10.7 % (2-11); Neutrophils Absolute Auto 5.7 x10*3/uL (2.0-8.3); Platelet Count 298 X10*3/uL (160-400); Red Blood Count 4.59 X10*6/uL (4.60-5.80); Red Cell Distribution Width 13.7 % (11.0-16.0); White Blood Count 8.2 X10*3/uL (4.8-10.8)
[2024-05-23 08:51] LABS: Alanine Aminotransferase 50 U/L (0-40); Alkaline Phosphatase 101 U/L (39-117); Anion Gap 12 (12-20); Aspartate Amino Transferase 54 U/L (5-37); Bilirubin Direct 0.2 mg/dL (0.0-0.5); Bilirubin Total 0.6 mg/dL (0.0-1.0); Blood Urea Nitrogen 24 mg/dL (9-16); Carbon Dioxide 26 mmol/L (22-29); Chloride 106 mmol/L (96-108); Creatinine Clr Calc Pharmacy 108.5; Estimated Glomerular Filt Rate > 60; Ethanol < 10 mg/dL; Glucose Random 76 mg/dL (60-115); Magnesium 1.9 mg/dL (1.6-2.6); Potassium 3.4 mmol/L (3.3-5.1); Sodium 141 mmol/L (135-145); Total Protein 6.9 g/dL (6.5-8.0)
[2024-05-23] MEDS: 0.9 % Sodium Chloride 1,000 ML 999 ML IV ×2 (09:18→09:27)
[2024-05-23] MEDS: Ketorolac Tromethamine 15 MG/ML VIAL IVPUSH (09:27)
[2024-05-23 11:57] VITALS: BP 112/85; PULSE 109; RESP 20; TEMP 37.1; O2SAT 98
[2024-05-23 12:00] VITALS: BP 159/75; PULSE 94; RESP 18; TEMP 36.8; O2SAT 98
--- NOTE | 2024-05-23 12:05 | PC.NURSE ---
slip given for pt to get a ride home via van
== END 2024-05-23 11:57 | disposition home or self-care (01) ==
PROVIDERS: Emergency Provider Emergency Medicine
DX: M62.82 Rhabdomyolysis (principal); F90.9 Attention-deficit hyperactivity disorder, unspecified type; Z79.899 Other long term (current) drug therapy; Z51.81 Encounter for therapeutic drug level monitoring
CPT/HCPCS: 36415; 80048; 80076; 80307; 82550; 83735; 85025; 96374; 99284; J1885